=== PATIENT | male | born 2000 | race Two or more races ===

== ENCOUNTER 2024-06-03 03:42 | Inpatient (IN) | payer OTHER ==
[~2024-06-03] VITALS: Ht 180.3 cm; Wt 68.0 kg
[2024-06-03] MEDS ORDERED: IPRATROPIUM/ALBUTEROL SULFATE 3 ML AMPUL.NEB IH SCH (05:56)
[2024-06-03] MEDS ORDERED: RINGERS SOLUTION,LACTATED 1,000 ML IV STA (05:57)
[2024-06-03] MEDS ORDERED: METHYLPREDNISOLONE SOD SUCC 125 MG VIAL IV STA (05:59)
[2024-06-03] MEDS ORDERED: CEFTRIAXONE SODIUM 2,000 MG VIAL IV STA (06:00)
[2024-06-03] MEDS ORDERED: KETOROLAC TROMETHAMINE 30 MG VIAL IV STA (06:00)
[2024-06-03 07:08] LABS: CALCIUM 8.3 mg/dL (8.5-10.1); CREATININE SERUM 1.08 mg/dL (0.70-1.30); GFR 84.73; POTASSIUM 3.43 mEq/L (3.5-5.1)
[2024-06-03 07:13] LABS: HEMATOCRIT 39.2 % (39.0-48.0); HEMOGLOBIN 13.5 g/dL (13-16.00); MEAN CELL VOLUME 89.1 fL (80.0-100.00); MEAN CORPUSCULAR HEMOGLOBIN 30.8 pg (27.00-32.0); MEAN CORPUSCULAR HGB CONC 34.6 g/dl (32.0-36.0); PLATELET COUNT 263 K/uL (150-450); RED CELL DISTRIBUTION WIDTH 13.2 % (11.5-14.5)
[2024-06-03 07:26] LABS: ERYTHROCYTE SEDIMENTATION RATE > 130 mm/hr
[2024-06-03 09:13] LABS: ABG PH 7.557 (7.35-7.45); ABG PO2 184.4 mmHg (80-100); ABG pCO2 22.8 mmHg (35-45); BASE EXCESS -0.3 mmol/l; BICARBONATE 19.8 mmol/l (23-25); SaO2 99.8 %; Tco2 20.5 mmol/l
[2024-06-03 09:14] LABS: allen test SATISFACTORY; o2 21 %; puncture site RADIAL RIGHT
[2024-06-03] MEDS ORDERED: AZITHROMYCIN 500 MG in 0.9 % SODIUM CHLORIDE 250 ML IV SCH (17:00)
[2024-06-03] MEDS ORDERED: FAMOTIDINE/PF 20 MG in 0.9 % SODIUM CHLORIDE 100 ML IV SCH (17:00)
[2024-06-03] MEDS ORDERED: ALBUTEROL SULFATE 3 ML/2.5 MG AMPUL.NEB IH SCH (17:47)
[2024-06-03] MEDS ORDERED: GUAIFENESIN 200 MG/10 ML BLIST.PACK PO SCH (17:47)
[2024-06-03] MEDS ORDERED: ACETAMINOPHEN 325 MG TABLET PO PRN (18:00)
[2024-06-03] MEDS ORDERED: 0.9 % SODIUM CHLORIDE 1,000 ML IV SCH (18:00)
[2024-06-04 08:53] LABS: COCAINE NEGATIVE (NEGATIVE); METHADONE NEGATIVE (NEGATIVE); OPIATES NEGATIVE (NEGATIVE); THC ( Cannabinoids) POSITIVE (NEGATIVE)
[2024-06-04 10:58] LABS: HEMATOCRIT 37.4 % (39.0-48.0); HEMOGLOBIN 12.5 g/dL (13-16.00); MEAN CELL VOLUME 90.9 fL (80.0-100.00); MEAN CORPUSCULAR HEMOGLOBIN 30.5 pg (27.00-32.0); MEAN CORPUSCULAR HGB CONC 33.6 g/dl (32.0-36.0); PLATELET COUNT 228 K/uL (150-450); RED BLOOD COUNT 4.11 M/uL (4.00-6.00); RED CELL DISTRIBUTION WIDTH 13.1 % (11.5-14.5)
== END 2024-06-05 09:36 | disposition home or self-care (01) | DRG 195 ==
LOC: ER 03:43 → SEC-K 19:44 → SURG 20:46
PROVIDERS: ADMIT Internal Medicine; ATTEND Internal Medicine
PROC: 3E0F7GC Introduction of Other Therapeutic Substance into Respiratory Tract, Via Natural or Artificial Opening (ICD-10-PCS; principal; 2024-06-03)
DX: J18.9 Pneumonia, unspecified organism (principal); J45.909 Unspecified asthma, uncomplicated; R53.83 Other fatigue

== ENCOUNTER 2025-04-25 23:24 | Emergency (ER) | payer OTHER ==
[~2025-04-25] VITALS: Ht 180.3 cm; Wt 72.6 kg
[2025-04-26] MEDS ORDERED: KETOROLAC TROMETHAMINE 60 MG VIAL IM STA (02:22)
[2025-04-26] MEDS ORDERED: KETOROLAC TROMETHAMINE 60 MG VIAL IM ONE (02:37)
[2025-04-26 02:59] LABS: BASO % 0.3 % (0.1-1.2); EOS # 0.01 (0.04-0.54); EOS % 0.1 % (0.7-7.0); HEMATOCRIT 44.7 % (40.1-51.0); HEMOGLOBIN 14.8 g/dL (13.7-17.5); LYMPH # 2.67 (1.18-3.74); LYMPH % 29.3 % (19.3-53.1); MEAN CORPUSCULAR HEMOGLOBIN 29.4 pg (25.6-32.2); MONO # 0.86 (0.24-0.82); MONO % 9.4 % (4.7-12.5); NEUT % 60.5 % (34.0-71.1); PLATELET COUNT 219 K/uL (163-369); RED BLOOD COUNT 5.04 M/uL (4.63-6.08); RED CELL DISTRIBUTION WIDTH 13.1 % (11.6-14.4)
[2025-04-26 03:24] LABS: INFLUENZA A AG NEGATIVE (NEGATIVE); INFLUENZA B AG NEGATIVE (NEGATIVE)
[2025-04-26 03:55] LABS: COVID-19 AG NEGATIVE (NEGATIVE)
[2025-04-26] MEDS ORDERED: DOLOGESIC-DF 51 EACH PO (04:56)
[2025-04-26] MEDS ORDERED: ORASEP SPRAY30 ML MM (05:01)
== END 2025-04-26 05:46 | disposition home or self-care (01) ==
LOC: ER 23:37
PROVIDERS: General Practice
DX: B27.90 Infectious mononucleosis, unspecified without complication (principal); J02.9 Acute pharyngitis, unspecified; Z20.822 Contact with and (suspected) exposure to COVID-19